=== PATIENT | male | born 1970 | race Caucasian/White ===

== ENCOUNTER 2023-11-25 23:40 | Emergency (ER) | payer OTHER ==
[2023-11-26] MEDS ORDERED: BABY ASPIRIN 81 MG CHEW PO ONE (00:14)
[2023-11-26] MEDS ORDERED: BABY ASPIRIN 81 MG CHEW ONE (00:16)
[2023-11-26] MEDS ORDERED: Heparin 25,000 units/D5W: USE ORDER SET PROTO 0 UNITS/0 ML BAG IV ONE (00:16)
[2023-11-26] MEDS ORDERED: HEPARIN 5000 UNITS/0.5 ML (HIGH RISK MED) ONE (00:16)
[2023-11-26] MEDS ORDERED: Lasix 40 MG/4 ML IV ONE (00:17)
[2023-11-26] MEDS ORDERED: Zofran 4 MG/2 ML VIAL IV ONE (00:19)
[2023-11-26] MEDS ORDERED: Ntg 0.2MG/Ml in D5W GLASS*** 250 ML IV PRN (00:19)
[2023-11-26 00:22] LABS: Absolute Neutrophil Ct (ANC) 11.23 x10^3/uL (1.4-6.9); BASOPHIL % 0.5 % (0.0-0.4); Basophil (Absolute #) 0.08 x10^3/uL (0-0.4); Eosinophil % 0.1 % (0.00-5.0); Eosinophil (Absolute #) 0.01 x10^3/uL (0-0.5); Hematocrit 50.1 % (42-50); Hemoglobin 16.8 g/dL (12.5-18.0); IMMATURE GRAN # 0.06 x10^3u/L (0.00-0.03); IMMATURE GRAN % 0.4 % (0.00-0.4); Lymphocyte (Absolute #) 2.91 x10^3/uL (1.0-4.6); Lymphocytes % 19.1 % (24.0-44.0); Mean Cell Volume 86.8 fL (78-100); Mean Corpuscular Hemoglobin 29.1 pg (26-32); Mean Corpuscular Hgb Concent. 33.5 g/dL (32-36); Mean Platelet Volume 9.4 fL (7.5-11.0); Monocyte (Absolute #) 0.98 x10^3/uL (0.0-1.3); Monocytes % 6.4 % (0.0-12.0); Neutrophil % 73.5 % (36.0-66.0); Platelet Count 458 x10^3/uL (150-450); Red Blood Count 5.77 x10^6/uL (4.1-5.6); Red Cell Distribution Width 12.2 % (11.5-14.0); White Blood Count 15.3 x10^3/uL (4.0-10.5)
[2023-11-26] MEDS ORDERED: Ntg 0.2MG/Ml in D5W GLASS*** 250 ML IV ONE (00:22)
[2023-11-26] MEDS ORDERED: Zofran 4 MG/2 ML VIAL ONE (00:22)
[2023-11-26] MEDS ORDERED: Nitrostat 0.4 MG (ED) SL ONE (00:22)
[2023-11-26] MEDS ORDERED: Lasix 40 MG/4 ML ONE (00:22)
--- NOTE | 2023-11-26 00:33 | ERPHSYRPT ---
- History of Present Illness Time Seen by Provider: 11/25/23 23:55 Historian: patient Exam Limitations: no limitations Physician History: Patient is a 53-year-old male history of diabetes presents to our ED for evaluation of 1 week history of progressive chest pain shortness of breath nausea vomiting and diaphoresis. reports that patient's symptoms have gradually worsened. She observed patient had lower extremity pitting edema over the past 3 days. Patient's chest pain was substernal. While in triage patient became acutely worse. EKG was completed. There was immediate concern for cardiac ischemia possible posterior wall AK. Repeat EKG was ordered but due to the rapid deterioration of our patient staff unable to complete posterior lead EKG. per RN patient observed to be in and out of V. tach V-fib. To our ED patient breath sounds are diminished with some faint wheezing at the bases. During nursing triage and IV placement patient became progressively diaphoretic. RN notified respiratory. Patient was placed on nonrebreather mask. Staff was advised to move patient out of treatment room and into the resuscitation area room 2. Stat chest x-ray was obtained. Patient was observed to have pulmonary edema. Lasix and nitroglycerin ordered. Patient received Lasix IV followed by nitroglycerin sublingual and then a nitroglycerin drip. Pacer pads were placed. Patient received heparin bolus. 325 mg aspirin. [facility] staff. Case discussed with Dr. Hernandez at 0014. He accepted transfer. Timing/Duration: week(s) Activities at Onset: none Quality: aching Location: substernal Chest Pain Radiation: no radiation Severity of Pain-Max: severe Severity of Pain-Current: moderate Modifying Factors: Improves With: nothing Associated Symptoms: shortness of breath Prior Chest Pain/Cardiac Workup: no prior chest pain Nitro Today/Relief: no nitro taken today Aspirin Treatment Today: no aspirin today Allergies/Adverse Reactions: prednisolone Adverse Reaction (Intermediate, Verified 11/25/23 23:52) Swelling elevates BS, no swelling or other reactions Home Medications: Clonidine HCl 0.1 mg [Clonidine 0.1 mg Tablet] 0.1 mg PO BID 11/25/23 [History] Clopidogrel Bisulfate [PLAVIX Tablet] 75 mg PO DAILY 11/25/23 [History] Insulin Glargine [Lantus Insulin] 1 unit SQ DAILY 11/25/23 [History] Insulin Lispro 20 units SQ TIDWM 11/25/23 [History] Irbesartan 300 mg PO DAILY 11/25/23 [History] Metoprolol Succinate 25 mg Xl* [Toprol-Xl 25MG Tablets] 25 mg PO DAILY 11/25/23 [History] - Review of Systems All Other Systems: Unable due to condition - Nursing Vital Signs Nursing Vital Signs: Initial Vital Signs Pulse Rate 132 H 11/25/23 23:48 Respiratory Rate 29 H 11/25/23 23:48 Blood Pressure 189/117 11/25/23 23:48 O2 Sat by Pulse Oximetry 94 L 11/25/23 23:48 Pain Scale Pain Intensity 9 - Physical Exam General Appearance: moderate distress, alert Eye Exam: PERRL/EOMI, eyes nml inspection Ears, Nose, Throat Exam: normal ENT inspection, TMs normal, pharynx normal, moist mucous membranes Neck Exam: normal inspection, non-tender, supple, full range of motion Respiratory Exam: airway intact, diminished breath sounds, wheezing, No respiratory distress Cardiovascular Exam: tachycardia Gastrointestinal/Abdomen Exam: soft, No tenderness, No mass Back Exam: normal inspection, No CVA tenderness, No vertebral tenderness Extremity Exam: normal inspection, normal range of motion Neurologic Exam: alert, oriented x 3, cooperative, normal mood/affect, sensation nml, No motor deficits Skin Exam: normal color, warm, dry SpO2 Interpretation: hypoxic, O2 applied SpO2: 94 O2 Delivery: Nasal Cannula - Course Nursing assessment & vital signs reviewed: Yes - Radiology Exams Chest X-ray Interpretation: Teleradiologist Report (Pulmonary edema) Ordered Tests: Active Orders 24 hr Category Date Time Status Petroleum Inspector STAT Care 11/25/23 23:50 Completed EKG-ER Only STAT Care 11/25/23 23:50 Completed IV Insertion STAT Care 11/25/23 23:50 Completed Pulse Oximetry (ED) STAT Care 11/25/23 23:50 Completed CHEST 1 VIEW (PORTABLE) Stat Exams 11/25/23 23:50 Completed Medication Summary Discontinued Medications Generic Name Dose Route Start Last Admin Trade Name Freq PRN Reason Stop Dose Admin Amiodarone HCl 150 mg 11/26/23 00:18 11/26/23 02:44 Amiodarone Hcl 150 Mg/3 Ml Vial IV 11/26/23 00:19 Not Given STAT ONE Aspirin 324 mg 11/26/23 00:14 Aspirin 81 Mg Tab.Chew PO 11/26/23 00:15 STAT ONE Aspirin Confirm 11/26/23 00:16 Aspirin 81 Mg Tab.Chew Administered 11/26/23 00:17 Dose 324 mg .ROUTE .STK-MED ONE Furosemide 40 mg 11/26/23 00:17 Furosemide 40 Mg/4 Ml Vial IV 11/26/23 00:18 STAT ONE Furosemide Confirm 11/26/23 00:22 Furosemide 40 Mg/4 Ml Vial Administered 11/26/23 00:23 Dose 40 mg .ROUTE .STK-MED ONE Heparin Sodium (Beef Lung) Confirm 11/26/23 00:16 Heparin 5000 Units/0.5 Ml 5,000 Unit/0.5 Ml Syr Administered 11/26/23 00:17 Dose 5,000 unit .ROUTE .STK-MED ONE Heparin Sodium/Dextrose Confirm 11/26/23 00:16 Heparin 25,000 Units/D5w: Use Order Set Tito Administered 11/26/23 00:17 Dose 25,000 units in 250 mls @ ud IV .STK-MED ONE Nitroglycerin/Dextrose 250 mls @ 1.5 mls/hr 11/26/23 00:19 Ntg 0.2mg/Ml In D5w Glass IV 12/26/23 00:18 .Q24H PRN CHEST PAIN Protocol 5 MCG/MIN Nitroglycerin/Dextrose Confirm 11/26/23 00:22 Ntg 0.2mg/Ml In D5w Glass Administered 11/26/23 00:23 Dose 250 mls @ ud IV .STK-MED ONE Nitroglycerin Confirm 11/26/23 00:22 Nitroglycerin 0.4 Mg (Ed) 0.4 Mg Tab.Subl Administered 11/26/23 00:23 Dose 0.4 mg SL .STK-MED ONE Ondansetron HCl 4 mg 11/26/23 00:19 Ondansetron Hcl 4 Mg/2 Ml Vial IV 11/26/23 00:20 STAT ONE Ondansetron HCl Confirm 11/26/23 00:22 Ondansetron Hcl 4 Mg/2 Ml Vial Administered 11/26/23 00:23 Dose 4 mg .ROUTE .STK-MED ONE Lab/Rad Data: Laboratory Result Diagrams 11/25/23 00:10 11/25/23 00:10 Laboratory Results 11/25/23 11/25/23 11/25/23 Range/Units 00:10 00:10 00:10 WBC 15.3 H (4.0-10.5) x10^3/uL RBC 5.77 H (4.1-5.6) x10^6/uL Hgb 16.8 (12.5-18.0) g/dL Hct 50.1 H (42-50) % MCV 86.8 (78-100) fL MCH 29.1 (26-32) pg MCHC 33.5 (32-36) g/dL RDW 12.2 (11.5-14.0) % Plt Count 458 H (150-450) x10^3/uL MPV 9.4 (7.5-11.0) fL Gran % 73.5 H (36.0-66.0) % Immature Gran % (Auto) 0.4 (0.00-0.4) % Nucleat RBC Rel Count 0.0 (0.00-0.1) % Eos # (Auto) 0.01 (0-0.5) x10^3/uL Immature Gran # (Auto) 0.06 H (0.00-0.03) x10^3u/L Absolute Lymphs (auto) 2.91 (1.0-4.6) x10^3/uL Absolute Monos (auto) 0.98 (0.0-1.3) x10^3/uL Absolute Nucleated RBC 0.00 (0.00-0.01) x10^3u/L Lymphocytes % 19.1 L (24.0-44.0) % Monocytes % 6.4 (0.0-12.0) % Eosinophils % 0.1 (0.00-5.0) % Basophils % 0.5 (0.0-0.4) % Absolute Granulocytes 11.23 H (1.4-6.9) x10^3/uL Basophils # 0.08 (0-0.4) x10^3/uL D-Dimer 1.89 H* (0.0-0.50) mg/L Sodium 136 L (137-145) mmol/L Potassium 4.9 (3.5-5.1) mmol/L Chloride 101 (98-107) mmol/L Carbon Dioxide 21 L (22-30) mmol/L Anion Gap 18.4 H (5-15) MEQ/L BUN 17 (9-20) mg/dL Creatinine 0.99 (0.66-1.25) mg/dL Estimated GFR 91.1 ML/MIN Glucose 430 H (74-106) mg/dL Calcium 10.6 H (8.4-10.2) mg/dL Total Bilirubin 0.70 (0.2-1.3) mg/dL AST 27 (17-59) U/L ALT 32 (0-50) U/L Alkaline Phosphatase 140 H (38-126) U/L Troponin I 0.619 H* (0.000-0.034) ng/mL Serum Total Protein 9.1 H (6.3-8.2) g/dL Albumin 4.9 (3.5-5.0) g/dL - Progress Air Movement: fair Blood Culture(s) Obtained: No Antibiotics given: No Discussed with : Other Will see patient in: other (Dr. Mendiola [id number] accepts transfer) - Departure Departure Disposition: Transfer Clinical Impression: V tach, Chest pain, Acute coronary syndrome, ST elevation myocardial infarction (STEMI) of true posterior wall, Nausea & vomiting, Diaphoresis, Pulmonary edema, Ventricular fibrillation Condition: Serious Critical Care Time: Yes Critical Care Time(excluding separately billable procedures): Critical 30-74 mins Referrals: DOCTOR,NO FAMILY [Primary Care Provider] - Follow up/PCP as directed
--- NOTE | 2023-11-26 00:46 | XRAY ---
CLINICAL HISTORY: pain TECHNIQUE: AP view chest x ray obtained. COMPARISON: None. FINDINGS: Rotation of patient. Borderline heart size. Prominent angella. Prominent and coarse perihilar bronchovascular marking. Obtuse both costophrenic angles. Visualized bones are equal. IMPRESSION: 1. Prominent and coarse perihilar broncho-vascular marking. Findings might be suggestive of moderate pulmonary edema due to [facility]. Clinical correlation may be suggested. 2. Borderline heart size. [facility] ER was called at [phone] at 11:40 PM [employer], 11/25/2023 and results were verbally communicated to the Aaron Tompkins. Electronically Signed by: Natividad Zapien MD. (11/26/2023 00:42:03 EST)
[2023-11-26 00:48] LABS: ALBUMIN 4.9 g/dL (3.5-5.0); ANION GAP 18.4 MEQ/L (5-15); BILIRUBIN,TOTAL 0.7 mg/dL (0.2-1.3); Calcium 10.6 mg/dL (8.4-10.2); Creatinine 1 0.99 mg/dL (0.66-1.25); EST GLOMERULAR FILTRATION RATE 91.1 ML/MIN; Potassium 4.9 mmol/L (3.5-5.1); Total Protein 9.1 g/dL (6.3-8.2)
[2023-11-26 00:50] LABS: TROPONIN 0.619 ng/mL (0.000-0.034)
[2023-11-26 01:30] VITALS: TEMP 96.8
[2023-11-26 01:38] VITALS: BP 117/94; PULSE 155; RESP 36
[2023-11-26] MEDS: Cordarone 150 MG/3 ML Injection IV ONE (02:44)
[2023-11-26 04:05] VITALS: O2SAT 94
== END 2023-11-26 00:35 | disposition short-term general hospital (02) ==
LOC: ED 23:40
DX: I21.29 ST elevation (STEMI) myocardial infarction involving other sites (principal); I24.9 Acute ischemic heart disease, unspecified; I47.20 Ventricular tachycardia, unspecified; R07.9 Chest pain, unspecified; R11.2 Nausea with vomiting, unspecified; R61 Generalized hyperhidrosis; J81.1 Chronic pulmonary edema; I49.01 Ventricular fibrillation; E11.9 Type 2 diabetes mellitus without complications; Z79.02 Long term (current) use of antithrombotics/antiplatelets; Z79.4 Long term (current) use of insulin; Z79.899 Other long term (current) drug therapy
CPT/HCPCS: 36000; 36415; 71045; 80053; 84484; 85025; 85379; 93005; 93041; 94760; 99285; 99291; J1644; J1940; J2405; A9270-GY